=== PATIENT | female | born 1935 | race Caucasian/White ===

== ENCOUNTER 2018-09-15 06:21 | Day surgery (SDC) ==
[2018-09-15] MEDS: BETADINE OPTH PREP OP PRN ×2 (06:50→07:21)
[2018-09-15] MEDS: TETRACAINE 0.5% UNIT-DOSE OP PRN ×2 (06:50→07:21)
[2018-09-15] MEDS: CYCLOGYL 2% OPTH OP PRN ×3 (06:51→07:01)
[2018-09-15] MEDS ORDERED: ZOFRAN 4 MG/2 ML IVP ONE (06:53)
[2018-09-15] MEDS ORDERED: LIDOCAINE 1% 20 ML MDV ID STA (06:53)
[2018-09-15] MEDS ORDERED: BRIMONIDINE TARTRATE 0.2% OPTH SOL OP PRN (06:53)
[2018-09-15 07:04] VITALS: TEMP 97
[2018-09-15] MEDS: LIDOCAINE 1%/PHENYLEPHRINE 1.5% BSS (SURGERY) INTRAOCULA ONE ×2 (07:27→07:37)
[2018-09-15] MEDS: DEX-MOXI-KETOR OPTH INJ 1/0.5/0.4 MG/ML IO ONE ×2 (07:27→07:37)
[2018-09-15] MEDS: BSS WITH EPINEPHRINE OP ONE ×2 (07:27→07:37)
[2018-09-15] MEDS ORDERED: ZOFRAN 4 MG/2 ML ONE (07:33)
[2018-09-15] MEDS ORDERED: SUBLIMAZE ONE (07:33)
[2018-09-15] MEDS ORDERED: VERSED ONE (07:33)
[2018-09-17 12:22] VITALS: BP 121/78
== END 2018-09-15 08:35 | disposition home or self-care (01) ==
LOC: SURG 06:21
PROVIDERS: ATTEND Ophthalmology
DX: H25.812 Combined forms of age-related cataract, left eye (principal)

== ENCOUNTER 2018-09-22 06:07 | Day surgery (SDC) | payer OTHER ==
[2018-09-22] MEDS: BETADINE OPTH PREP OP PRN ×2 (06:25→07:05)
[2018-09-22] MEDS: CYCLOGYL 2% OPTH OP PRN ×3 (06:25→06:35)
[2018-09-22] MEDS: TETRACAINE 0.5% UNIT-DOSE OP PRN ×2 (06:25→07:05)
[2018-09-22] MEDS ORDERED: BSS WITH EPINEPHRINE OP ONE (06:28)
[2018-09-22] MEDS ORDERED: DEX-MOXI-KETOR OPTH INJ 1/0.5/0.4 MG/ML IO ONE (06:28)
[2018-09-22] MEDS ORDERED: ZOFRAN 4 MG/2 ML IVP ONE (06:28)
[2018-09-22] MEDS ORDERED: LIDOCAINE 1% 20 ML MDV ID STA (06:28)
[2018-09-22] MEDS ORDERED: BRIMONIDINE TARTRATE 0.2% OPTH SOL OP PRN (06:28)
[2018-09-22] MEDS ORDERED: LIDOCAINE 1%/PHENYLEPHRINE 1.5% BSS (SURGERY) INTRAOCULA ONE (06:28)
[2018-09-22 06:39] VITALS: TEMP 97.4
[2018-09-22] MEDS ORDERED: ZOFRAN 4 MG/2 ML ONE (07:05)
[2018-09-22] MEDS ORDERED: DIPRIVAN 20 ML VIAL IVP ONE (07:05)
[2018-09-22] MEDS ORDERED: VERSED ONE (07:05)
[2018-09-23 13:24] VITALS: BP 152/56
== END 2018-09-22 08:05 | disposition home or self-care (01) ==
LOC: SURG 06:07
PROVIDERS: ATTEND Ophthalmology
DX: H25.811 Combined forms of age-related cataract, right eye (principal)